=== PATIENT | female | born 1990 ===

== ENCOUNTER 2020-12-25 16:05 | Outpatient (REF) | payer OTHER, SELFPAY ==
--- NOTE | ~2020-12-25 | US_ITS ---
EXAMINATION: US THYROID CLINICAL INFORMATION: Nontoxic single thyroid nodule. COMPARISON: Ultrasound soft tissue head/neck thyroid dated 10/20/2019. TECHNIQUE: Linear transducer grayscale and color Doppler examination with attention to the region of the thyroid. FINDINGS: SIZE: Measurements of the thyroid lobes and nodules are given in sagittal, anteroposterior and transverse dimensions respectively. Right Thyroid Lobe: 4.5 x 1.2 x 1.4 cm, volume 4.0 mL. Previously 5.3 x 1.6 x 1.2 cm, volume 5.3 mL. Parenchyma: The gland echotexture is homogeneous. Thyroid vascularity is normal. Left Thyroid Lobe: 4.7 x 2.1 x 2.2 cm, volume 11.4 mL. Previously 4.8 x 2.0 x 2.0 cm, volume 10.0 mL. Parenchyma: The gland echotexture is homogeneous. Thyroid vascularity is normal. Isthmus: 0.1 cm in maximum AP dimension. Previously 0.2 cm. Estimated total number of nodules greater than or equal to 1 cm: 1. Rn Anesthetist nodules are described as follows: 1. Location: Left mid. Size: 3.4 x 1.8 x 2.1 cm, volume 6.7 mL. Previously: 4.2 x 1.7 x 1.8 cm, volume 6.7 mL. Nodule characteristics: Composition: Mixed cystic and solid (1). Echogenicity: Hypoechoic (2). Shape: Not taller than wide (0). Margins: Smooth (0). Echogenic Foci: None (0). ACR TI-RADS total points: 3 Previous: n/a ACR TI-RADS category: 3 Previous: n/a Significant change in size (>/= 20% in 2 dimensions and minimal increase of 2 mm or 50% or greater increase in volume): No Change in features: No Change in ACR TI-RADS risk category: n/a NODES: No lymphadenopathy is seen in the tissue surrounding the thyroid gland. US/US thyroid IMPRESSION: Slightly enlarged left lobe. Stable left thyroid nodule. ACR TI-RADS RECOMMENDATION REFERENCE: Ultrasound-guided fine-needle aspiration, followup ultrasound, no further follow up. * TR1 (0 point) and TR 2 (2 points): No FNA or follow up * TR3 (3 points): FNA if more than or equal to 2.5 cm in maximum dimension, followup ultrasound in 1, 3 and 5 years if 1.5 to 2.4 cm in maximum dimension. * TR4 (4-6 points): FNA if more than or equal to 1.5 cm in maximum dimension, followup ultrasound in 1, 2, 3 and 5 years if 1 to 1.4 cm in maximum dimension. * TR5 (more than or equal to 7 points): FNA if more than or equal to 1 cm in maximum dimension, followup ultrasound every year for 5 years if 0.5 to 0.9 cm in maximum dimension. * TR3, TR4 or TR5 nodules that are below the size threshold for follow up receive no follow up.
== END 2020-12-25 16:06 | disposition home or self-care (01) ==
LOC: HO.US 16:05
PROVIDERS: Visit Provider Internal Medicine
DX: E04.1 Nontoxic single thyroid nodule (principal)
CPT/HCPCS: 76536

== ENCOUNTER 2021-06-13 12:38 | Outpatient (REF) | payer OTHER, SELFPAY ==
[2021-06-13 15:01] LABS: Free T4 (Free Thyroxine) 0.83 ng/dL (0.71-1.85)
[2021-06-14 04:22] LABS: Triiodothyronine T3 Total 149 ng/dL (76-181)
== END 2021-06-13 12:39 | disposition home or self-care (01) ==
LOC: HO.LAB 12:38
PROVIDERS: PCP Student in an Organized Health Care Education/Training Program; Visit Provider Internal Medicine
DX: E04.1 Nontoxic single thyroid nodule (principal); E55.9 Vitamin D deficiency, unspecified
CPT/HCPCS: 36415; 82306; 84439; 84443; 84480; 99202

== ENCOUNTER 2022-01-23 11:33 | Outpatient (REF) | payer OTHER, SELFPAY ==
--- NOTE | ~2022-01-23 | US_ITS ---
EXAMINATION: US THYROID CLINICAL INFORMATION: Nontoxic single thyroid nodule. COMPARISON: Ultrasound soft tissue head/neck thyroid dated 12/25/2020 and 10/20/2019. TECHNIQUE: Linear transducer grayscale and color Doppler examination with attention to the region of the thyroid. FINDINGS: SIZE: Measurements of the thyroid lobes and nodules are given in sagittal, anteroposterior and transverse dimensions respectively. Right Thyroid Lobe: 5.7 x 1.6 x 1.7 cm, volume 7.7 mL. Previously 4.5 x 1.2 x 1.4 cm, volume 4.0 mL. Parenchyma: The gland echotexture is homogeneous. Thyroid vascularity is normal. Left Thyroid Lobe: 5.4 x 1.9 x 2.3 cm, volume 11.8 mL. Previously 4.7 x 2.1 x 2.2 cm, volume 11.4 mL. Parenchyma: The gland echotexture is homogeneous. Thyroid vascularity is normal. Isthmus: 0.2 cm in maximum AP dimension. Previously 0.1 cm. Estimated total number of nodules greater than or equal to 1 cm: 1. Paraffiner nodules are described as follows: 1. Location: Left mid. Size: 2.7 x 1.8 x 2.1 cm, volume 5.44 mL. Previously: 3.4 x 1.8 x 2.1 cm, volume 6.7 mL. Nodule characteristics: Composition: Solid/almost completely solid (2). Cystic component appears decreased. Echogenicity: Cannot be determined (1). Shape: Not taller than wide (0). Margins: Lobulated (2). Echogenic Foci: Punctate echogenic foci (3). ACR TI-RADS total points: 8 Previous: 3 ACR TI-RADS category: 5 Previous: 3 Significant change in size (>/= 20% in 2 dimensions and minimal increase of 2 mm or 50% or greater increase in volume): No Change in features: Yes. Nodule appears decreased in size likely due to decrease in cystic component. Change in ACR TI-RADS risk category: Change in category due to solitary punctate calcification. NODES: No lymphadenopathy is seen in the tissue surrounding the thyroid gland. US/US thyroid IMPRESSION: Solitary left thyroid nodule. Interval decrease in size and cystic component of the left thyroid nodule. Small punctate calcification changing nodule grade and category. ACR TI-RADS RECOMMENDATION REFERENCE: Ultrasound-guided fine-needle aspiration, followup ultrasound, no further follow up. * TR1 (0 point) and TR 2 (2 points): No FNA or follow up * TR3 (3 points): FNA if more than or equal to 2.5 cm in maximum dimension, followup ultrasound in 1, 3 and 5 years if 1.5 to 2.4 cm in maximum dimension. * TR4 (4-6 points): FNA if more than or equal to 1.5 cm in maximum dimension, followup ultrasound in 1, 2, 3 and 5 years if 1 to 1.4 cm in maximum dimension. * TR5 (more than or equal to 7 points): FNA if more than or equal to 1 cm in maximum dimension, followup ultrasound every year for 5 years if 0.5 to 0.9 cm in maximum dimension. * TR3, TR4 or TR5 nodules that are below the size threshold for follow up receive no follow up.
== END 2022-01-23 11:34 | disposition home or self-care (01) ==
LOC: HO.US 11:33
PROVIDERS: Visit Provider Internal Medicine
DX: E04.1 Nontoxic single thyroid nodule (principal)
CPT/HCPCS: 76536

== ENCOUNTER 2022-02-03 12:24 | Outpatient (REF) | payer OTHER, SELFPAY ==
[2022-02-03 14:11] LABS: Free T4 (Free Thyroxine) 0.95 ng/dL (0.71-1.85); Vitamin D 25-OH Total 38.9 ng/mL (>30)
== END 2022-02-03 12:25 | disposition home or self-care (01) ==
LOC: HO.LAB 12:24
PROVIDERS: PCP Student in an Organized Health Care Education/Training Program; Visit Provider Internal Medicine
DX: E04.1 Nontoxic single thyroid nodule (principal); E55.9 Vitamin D deficiency, unspecified
CPT/HCPCS: 36415; 82306; 84439; 84443

== ENCOUNTER → 2022-03-17 12:38 | Outpatient (REF) | payer OTHER, SELFPAY ==
--- NOTE | 2022-03-17 12:45 | ECG_ITS ---
Hook-up date: 2022-03-17 11:58:00 Duration: 26:11:00 Test Indications: PALPITATIONS Medications: [id number] QRS complexes * Ventricular ectopics which represent % of total QRS comp. 2 Supraventricular ectopics which represent <1 % of total QRS comp. * Paced QRS complexs which represent % of total QRS comp. VENTRICULAR ECTOPY * Isolated * Bigeminal Cycles * Couplets * Runs * Beats in Runs * Beats LONGEST at * BPM at :: -- * Beats FASTEST at * BPM at :: -- SUPRAVENTRICULAR ECTOPY 2 Isolated 0 Couplets 0 Runs 0 Beats in Runs * Beats LONGEST at * BPM at :: -- * Beats FASTEST at * BPM at :: -- HEART RATES 59 MIN at 03:44:23 2022-03-18 87 AVG 127 MAX at 07:32:55 2022-03-18 LONGEST RR 1.1760 secs at 00:24:51 2022-03-18 S-T LEVELS Channel 1 - 128 mm at 11:58:00 2022-03-17 - 128 mm at 11:58:00 2022-03-17 Channel 2 - 128 mm at 11:58:00 2022-03-17 - 128 mm at 11:58:00 2022-03-17 Channel 3 - 128 mm at 03:11:71 -- - 128 mm at 03:11:71 Basic rhythm Normal sinus rhythm No long pause or profound bradycardia Frequent Sinus tachycardia , 26% of total time HR > 100 bpm No dangerous dysrhythm periods Patient did not report any symptoms in the diary Referred By: Theresa Pike Overread By: PARKER ESPINOZA MD
== END ==
LOC: HO.CARD 12:38
PROVIDERS: PCP Student in an Organized Health Care Education/Training Program; Visit Provider Student in an Organized Health Care Education/Training Program
DX: R00.2 Palpitations (principal)
CPT/HCPCS: 93226

== ENCOUNTER 2022-08-27 08:50 | Outpatient (REF) | payer OTHER, SELFPAY ==
--- NOTE | ~2022-08-27 | MM_ITS ---
EXAMINATION: MM DIAGNOSTIC DIGITAL BREAST TOMOSYNTHESIS, BILATERAL US DIAGNOSTIC ULTRASOUND BREAST, LEFT CLINICAL INFORMATION: 31-year-old with lower outer quadrant pain left breast for approximately 6 months, persistent, dull, noncyclical. No palpable mass or discharge. Family history breast cancer grandmother. TC score 13%. COMPARISON: None (current study represents initial baseline exam). TECHNIQUE: Digital breast tomosynthesis is performed in both the craniocaudal and mediolateral oblique views along with computer-aided detection (CAD). Synthesized 2D images are generated from the tomosynthesis. Ultrasound left breast is targeted to the areas of clinical concern using grayscale imaging and color Doppler without and with harmonics. Patient is able to point to the area time of imaging. FINDINGS: There are scattered areas of fibroglandular density (ACR BI-RADS breast composition Category b). Breast tissue composition borders on predominantly fatty. There is no significant mass or architectural abnormality or abnormal calcifications. The axilla are unremarkable. No skin thickening. No coarsening of the Nick's ligaments. Ultrasound left breast demonstrates no cystic or solid mass, architectural abnormality, or focal duct ectasia. No skin thickening or edema tracking in soft tissue planes. Results are discussed with the patient at time of visit. MM/MM tomosynthesis diagnostic BI IMPRESSION: -No mammographic evidence of malignancy or inflammatory changes. -Unremarkable left breast ultrasound. ASSESSMENT: BI-RADS 1: Negative RECOMMENDATION: 1. Patient's left mastodynia should be managed based on the clinical impression. 2. Otherwise, routine annual screening mammography, beginning age 40, or earlier as clinical risk factors warrant. This patient's information was entered into a reminder system with a target due date for their next mammogram.
== END 2022-08-27 08:51 | disposition home or self-care (01) ==
LOC: HO.MAMMO 08:50
PROVIDERS: PCP Student in an Organized Health Care Education/Training Program; Visit Provider Advanced Practice Midwife
DX: N64.4 Mastodynia (principal)
CPT/HCPCS: 76642; 77062; 77066

== ENCOUNTER 2022-09-05 11:14 | Outpatient (REF) | payer OTHER, SELFPAY ==
--- NOTE | ~2022-09-05 | US_ITS ---
EXAMINATION: US PELVIS COMPLETE CLINICAL INFORMATION: Pain COMPARISON: None TECHNIQUE: Transabdominal and transvaginal imaging was performed. FINDINGS: The uterus is of normal size and echogenicity measuring 6.8 x 2.7 x 5.3 cm. A regular homogeneous endometrium is identified measuring 0.2 cm. Both ovaries are of normal size and echogenicity. The right measures 2.8 x 2.1 x 2.2 cm for a volume of 6.8 mL. The left measures 3.7 x 2.2 x 2.6 cm for a volume of 11.1 mL, with a physiologic dominant follicle, no follow-up imaging recommended. There is no pelvic free fluid. US/US pelvic and transvaginal IMPRESSION: Unremarkable pelvic ultrasound.
== END 2022-09-05 11:15 | disposition home or self-care (01) ==
LOC: HO.US 11:14
PROVIDERS: PCP Student in an Organized Health Care Education/Training Program; Visit Provider Advanced Practice Midwife
DX: R10.2 Pelvic and perineal pain (principal)
CPT/HCPCS: 76830; 76856

== ENCOUNTER 2022-11-19 13:44 | Outpatient (REF) | payer OTHER, SELFPAY ==
--- NOTE | ~2022-11-19 | US_ITS ---
EXAMINATION: US THYROID CLINICAL INFORMATION: Nontoxic single thyroid nodule. COMPARISON: Ultrasound thyroid 01/23/2022 and 12/25/2020. US-guided thyroid biopsy 11/16/2019. TECHNIQUE: Linear transducer grayscale and color Doppler examination with attention to the region of the thyroid. FINDINGS: SIZE: Measurements of the thyroid lobes and nodules are given in sagittal, anteroposterior and transverse dimensions respectively. Right Thyroid Lobe: 4.5 x 2.0 x 1.2 cm, volume 5.8 mL. Previously 5.7 x 1.6 x 1.7 cm, volume 7.7 mL. Parenchyma: The gland echotexture is homogeneous. Thyroid vascularity is normal. Left Thyroid Lobe: 4.4 x 1.9 x 2.4 cm, volume 10.6 mL. Previously 5.4 x 1.9 x 2.3 cm, volume 11.8 mL. Parenchyma: The gland echotexture is heterogeneous. Thyroid vascularity is increased. Isthmus: 0.4 cm in maximum AP dimension. Previously 0.2 cm. Estimated total number of nodules greater than or equal to 1 cm: 1. Award Clerk nodules are described as follows: 1. Location: Left mid. Size: 3.0 x 1.8 x 2.0 cm, volume 5.7 mL. Previously: 2.7 x 1.8 x 2.1 cm, volume 5.44 mL. Nodule characteristics: Composition: Solid/almost completely solid (2). Echogenicity: Cannot be determined (1). Shape: Not taller than wide (0). Margins: Lobulated (2). Echogenic Foci: None (0). ACR TI-RADS total points: 5 Previous: 8 ACR TI-RADS category: 4 Previous: 5 Significant change in size (>/= 20% in 2 dimensions and minimal increase of 2 mm or 50% or greater increase in volume): No Change in features: Yes Change in ACR TI-RADS risk category: Yes NODES: No lymphadenopathy is seen in the tissue surrounding the thyroid gland. US/US thyroid IMPRESSION: FNA is recommended of left mid nodule if not previously performed. ACR TI-RADS RECOMMENDATION REFERENCE: Ultrasound-guided fine-needle aspiration, followup ultrasound, no further follow up. * TR1 (0 point) and TR2 (2 points): No FNA or follow up. * TR3 (3 points): FNA if more than or equal to 2.5 cm in maximum dimension, followup ultrasound in 1, 3 and 5 years if 1.5 to 2.4 cm in maximum dimension. * TR4 (4-6 points): FNA if more than or equal to 1.5 cm in maximum dimension, followup ultrasound in 1, 2, 3 and 5 years if 1 to 1.4 cm in maximum dimension. * TR5 (more than or equal to 7 points): FNA if more than or equal to 1 cm in maximum dimension, followup ultrasound every year for 5 years if 0.5 to 0.9 cm in maximum dimension. * TR3, TR4 or TR5 nodules that are below the size threshold for followup receive no follow up.
== END 2022-11-19 13:45 | disposition home or self-care (01) ==
LOC: HO.US 13:44
PROVIDERS: PCP Student in an Organized Health Care Education/Training Program; Visit Provider Internal Medicine
DX: E04.1 Nontoxic single thyroid nodule (principal)
CPT/HCPCS: 76536

== ENCOUNTER 2023-01-27 08:35 | Outpatient (AMB) | payer OTHER, SELFPAY ==
--- NOTE | 2023-01-27 08:40 | A.OFFVIS_ITS ---
Intake Vital Signs 01/27/23 08:41 Height 5 ft 9 in Weight 243 lb 9.773 oz BMI 36.0 BP 106/72 Blood Pressure Location Rt brachial Position Sitting Pulse 92 Pulse Source Pulse Oximeter Temp 98.4 F Pulse Oximetry (%) 98 Intake Visit Reasons: Multiple Joint Pain W/low possibilities YOSHI /^ ESR Intake Note: New pt presents today for consult. 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 Patient stated that for years she has had diffuse pain, sensitivity to touch. She has difficulty falling and staying asleep. This pain has become worse over the last 2 years. She has pain in her neck, shoulders, arms, feet. States that she has a sister with thyroid disease. She she had 1 , 1 live and no miscarriages. 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 Reproductive History Menstrual Total pregnancies: 1 Number of Living Children: 1 Review of Systems Const Reports fatigue, Reports fever(s), Reports headache(s), Reports weakness and Reports weight gain Eyes Reports blurry vision, Reports dry eyes, Reports itchy eyes and Reports eye pain ENT Reports dysphagia, Reports dizziness, Reports dry mouth, Reports headache(s), Reports hoarseness and Reports tinnitus GI Reports constipation, Reports dysphagia, Reports heartburn and Reports nausea Musc Reports myalgias, Reports arthralgias, Reports muscle weakness and Reports stiffness Skin/Breast Reports alopecia, Reports pruritus, Reports rash and Reports skin pain Neuro Reports dizziness, Reports headache(s) and Reports weakness Psych Reports abnormal sleep pattern and Reports anxiety Endo Reports fatigue Aller/Immun Reports itchy eyes Physical Exam Vital Signs: Last Vital Signs Temp 98.4 F 01/27/23 08:41 Pulse 92 01/27/23 08:41 BP 106/72 01/27/23 08:41 Pulse Ox 98 01/27/23 08:41 BMI result Body Mass Index 36.0 Const General: cooperative, healthy appearing and comfortable Nutritional Appearance: obese Orientation/consciousness: patient oriented x3 Limitations: no limitations HEENT Head: Yes normocephalic and Yes atraumatic Mouth: moist mucous membranes Resp Effort & Inspection: normal respiratory effort and able to speak in complete sentences Auscultation: clear to auscultation bilaterally Cardio Rate: regular rate and tachycardic GI Inspection: No distended Palpation (GI): Soft to palpation and nontender Skin General skin exam: no rashes or lesions noted Neuro General: patient oriented x3 Extrem Other: Diffuse fibromyalgia tender points Bilateral positive MCP squeeze test. No joint swelling noted Normal nailfold capillaroscopy Results Reviewed Results Reviewed: Labs 08/14? YOSHI 1-40 fine speckled CCP/RF negative? CRP normal CMP unremarkable Assessment & Plan Assessment & Plan (1) YOSHI positive: Code(s): R76.8 - Other specified abnormal immunological findings in serum Plan: This is a 32-year-old female who presents for evaluation of a positive YOSHI speckled. Patient has normal CRP. I do not see any signs suggestive of an autoimmune rheumatic disease upon my evaluation. Clinical picture consistent with fibromyalgia (2) Fibromyalgia, primary: Code(s): M79.7 - Fibromyalgia Plan: Discussed management of fibromyalgia with patient. Is a noninflammatory, non- autoimmune central afferent processing disorder leading to a diffuse pain syndrome. I suggested that patient try to address her underlying psychiatric issues, anxiety/depression. I suggested evaluation by a therapist and/or a psychiatrist . Try to follow sleep hygiene practices. I I suggested referral for a sleep study by her PCP, her sister has ELIZABETH. Patient would benefit from increased physical activity, either through formal physical therapy or by joining a gym. Advised patient that she should start activity slowly and increase as tolerated. Consider low-impact exercises such as walking, swimming, aqua therapy stretching, yoga. Plan I spent 46 minutes reviewing patient's chart, evaluating patient, counseling patient and documenting in the chart Coding Level of Care Code New Pt Level 4 (88520) Diagnoses YOSHI positive R76.8 Fibromyalgia, primary M79.7
[2023-01-27 08:41] VITALS: BP 106/72; PULSE 92; TEMP 36.9; O2SAT 98; BMI 36.0
== END 2023-01-27 09:13 | disposition home or self-care (01) ==
PROVIDERS: PCP Student in an Organized Health Care Education/Training Program; Visit Provider Student in an Organized Health Care Education/Training Program
DX: R76.8 Other specified abnormal immunological findings in serum (principal); M79.7 Fibromyalgia
CPT/HCPCS: 99204

== ENCOUNTER → 2023-01-27 08:35 | Outpatient (BNVA) | payer OTHER, SELFPAY | PROVIDERS: PCP Student in an Organized Health Care Education/Training Program; Visit Provider Student in an Organized Health Care Education/Training Program | DX: R76.8 Other specified abnormal immunological findings in serum (principal); M79.7 Fibromyalgia | CPT/HCPCS: 99202 ==

== ENCOUNTER 2023-04-30 10:42 | Outpatient (REF) | payer OTHER, SELFPAY ==
[2023-04-30 12:13] LABS: Thyroid Stimulating Hormone 1.19 uIU/mL (0.32-4.0); Vitamin D 25-OH Total 35.2 ng/mL (>30)
== END 2023-04-30 10:43 | disposition home or self-care (01) ==
LOC: HO.LAB 10:42
PROVIDERS: PCP Student in an Organized Health Care Education/Training Program; Visit Provider Internal Medicine Endocrinology, Diabetes & Metabolism
DX: E04.1 Nontoxic single thyroid nodule (principal); E55.9 Vitamin D deficiency, unspecified
CPT/HCPCS: 36415; 82306; 84439; 84443

== ENCOUNTER 2023-05-04 09:46 | Outpatient (AMB) | payer OTHER, SELFPAY ==
[2023-05-04 09:47] VITALS: BP 108/68; PULSE 92; BMI 36.1
--- NOTE | 2023-05-04 09:47 | MHC.OFFVIS ---
Intake Vital Signs 05/04/23 09:47 Height 5 ft 9 in Weight 244 lb 11.41 oz BMI 36.1 BP 108/68 Blood Pressure Location Lt brachial Position Sitting Pulse 92 Pulse Source Pulse Oximeter Intake Visit Reasons: F/U NTMNG/CONFIRMED Intake Note: Patient present for NTMNG follow up visit. Previously followed by Dr. Shelton. 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 The patient last saw Dr. Shelton on 02/10/2022 Was initially diagnosed with multinodular thyroid in 2019 with thyroid US revealing a 4 cm nodule within the L lobe of her thyroid. She underwent FNA biopsy by IR 06/17/2019 with benign cytology. She had a repeat US completed 01/23/2022 which revealed no significant changes. Currently denies any dysphagia or hoarseness of voice. She reports occasional headaches, lightheadedness and abdominal pain. She has an appointment this week to discuss this with her PCP. Denies any history of head or neck irradiation. Does have a family history of thyroid cancer in her maternal Grandmother. Thyroid US: 01/23/2022 Right Thyroid Lobe: 5.7 x 1.6 x 1.7 cm, volume 7.7 mL. Previously 4.5 x 1.2 x 1.4 cm, volume 4.0 mL. Parenchyma: The gland echotexture is homogeneous. Thyroid vascularity is normal. Left Thyroid Lobe: 5.4 x 1.9 x 2.3 cm, volume 11.8 mL. Previously 4.7 x 2.1 x 2.2 cm, volume 11.4 mL. Parenchyma: The gland echotexture is homogeneous. Thyroid vascularity is normal. Isthmus: 0.2 cm in maximum AP dimension. Previously 0.1 cm. Estimated total number of nodules greater than or equal to 1 cm: 1. Stacking Machine Operator nodules are described as follows: 1.? Location: Left mid. ?? ? Size: 2.7 x 1.8 x 2.1 cm, volume 5.44 mL. ?? ? Previously: 3.4 x 1.8 x 2.1 cm, volume 6.7 mL. ?? ? Nodule characteristics: ?? ? Composition: Solid/almost completely solid (2). Cystic component appears decreased. ?? ? Echogenicity: Cannot be determined (1). ?? ? Shape: Not taller than wide (0). ?? ? Margins: Lobulated (2). ?? ? Echogenic Foci: Punctate echogenic foci (3).? ACR TI-RADS total points: 8 Previous: 3 ?? ? ACR TI-RADS category: 5 Previous: 3 ? Significant change in size (>/= 20% in 2 dimensions and minimal increase of 2 mm or 50% or greater increase in volume): No ?? ? Change in features: Yes. Nodule appears decreased in size likely due to decrease in cystic component. ?? ? Change in ACR TI-RADS risk category: Change in category due to solitary punctate calcification. NODES: No lymphadenopathy is seen in the tissue surrounding the thyroid gland. Labs: Laboratory Tests 02/03/22 12:46 25-OH Vitamin D To nitin 38.9 TSH 1.20 Free T4 0.95 C/O pain and hoarseness but only intermittedly, Does not want surgery [facility] Medical History Thyroid nodule Vitamin D deficiency Surgical History No history of previous surgery Family History Maternal Grandmother Family history of thyroid problem Paternal Grandfather Heart attack Mother Hypertension Arthritis Father Hypertension Arthritis Family/Other Lupus Social History Household Members: Spouse and Children Alcohol intake: never Patient Tobacco Use Status: Never used Tobacco Current occupational status: employed 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 A 3 cm nodule is palpated left midpole. There is no cervical adenopathy present Assessment & Plan Assessment & Plan (1) Thyroid nodule: Code(s): E04.1 - Nontoxic single thyroid nodule Plan: This is a 32-year-old female with a history of left thyroid nodule status post FNA with benign cytology in 2020. She appears to be clinically biochemically euthyroid. Recent thyroid ultrasound showed no change in the size of the nodule Plan is discussed options with the patient including following nodule with serial ultrasounds vs left lobectomy. She is opting at this point for observation. She returned to the care of her primary care provider who could order an ultrasound for follow-up in about 2-3 years time. Should there be any change in the size of or characteristics of the nodule, the patient returned back to endocrine Coding Level of Care Code Est Pt Level 3 (22123) Diagnoses Thyroid nodule E04.1
== END 2023-05-04 10:02 | disposition home or self-care (01) ==
PROVIDERS: PCP Student in an Organized Health Care Education/Training Program; Visit Provider Internal Medicine Endocrinology, Diabetes & Metabolism
DX: E04.1 Nontoxic single thyroid nodule (principal)
CPT/HCPCS: 99213

== ENCOUNTER → 2023-05-04 09:46 | Outpatient (BNVA) | payer OTHER, SELFPAY | PROVIDERS: PCP Student in an Organized Health Care Education/Training Program; Visit Provider Internal Medicine Endocrinology, Diabetes & Metabolism | DX: E04.1 Nontoxic single thyroid nodule (principal) | CPT/HCPCS: 99212 ==

== ENCOUNTER 2023-07-30 11:08 | Outpatient (REF) | payer OTHER, SELFPAY ==
--- NOTE | ~2023-07-30 | XR_ITS ---
EXAMINATION: XR CHEST CLINICAL INFORMATION: Chronic cough, second hand smoke, mild intermittent asthma. COMPARISON: None available. TECHNIQUE: 2 views of the chest were obtained. FINDINGS: There is no gross pneumothorax. Heart size is normal. No pleural effusion. Mild degenerative changes in the thoracic spine. No focal consolidation to suggest pneumonia. XR/XR chest 2V IMPRESSION: No evidence of pneumonia.
== END 2023-07-30 11:09 | disposition home or self-care (01) ==
LOC: HO.XRAY 11:08
PROVIDERS: Absent Provider Student in an Organized Health Care Education/Training Program; PCP Student in an Organized Health Care Education/Training Program; Visit Provider Pediatrics
DX: J45.20 Mild intermittent asthma, uncomplicated (principal)
CPT/HCPCS: 71046

== ENCOUNTER 2023-09-29 10:24 | Outpatient (AMB) | payer OTHER, SELFPAY ==
--- NOTE | 2023-09-29 10:41 | A.OFFVIS_ITS ---
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 Patient states she gets cramps when walking. Accompanied by: Self / Same As Patient Allergies No Known Allergies Allergy (Verified 09/29/23 10:43) [facility] PACKAGING ENGINEER/C faxed referral for VV: Details: Pleasant 33-year-old female patient presents for painful varicose veins. Complaints include pain over varicosities, swelling of lower extremities, cramping, fatigue, and heaviness of the lower extremities. 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 It is noted more so in right leg. In particular she complains about the right posterior aspect of the knee Patient denies any previous venous surgery or injections. Patient denies any history of DVT/ PE. Patient denies any history of phlebitis. Trial of compression includes - [id number] They now present for vascular evaluation regarding their varicose veins. 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 Review of Systems Const Reports as per HPI ENT Reports no additional complaints Card Denies chest pain, Denies chest pain at rest and Denies chest pain with activity Resp Denies chest congestion and Denies cough GI Reports no additional complaints Musc Details: pain over varicosities, aching of lower extremities, swelling, cramping, heaviness and tiredness, itching Denies abnormal gait Skin/Breast Reports pruritus and Denies wounds Neuro Reports no additional complaints and Denies abnormal gait Psych Denies no additional complaints Physical Exam Const General: cooperative, healthy appearing and comfortable Orientation/consciousness: oriented to person, oriented to place and oriented to time Neck Carotids: no bruits Chest Chest palpation & inspection: normal inspection of the chest and normal palpation of entire chest wall Resp Effort & Inspection: normal respiratory effort and able to speak in complete sentences Cardio Rate: regular rate Heart sounds: S1 normal heart sound present and S2 normal heart sound present Peripheral pulses: Peripheral pulses 2+ throughout GI Inspection: Yes normal to inspection Skin Other: +2 edema, large rope-like varicosities greater than 4 mm CEAP Classification C4 - skin color changes Ep - Etiology Primary As - superficial veins P - reflux General skin exam: dry skin Neuro General: oriented to person, oriented to place and oriented to time Extrem Right lower extremity: full ROM, normal capillary refill and edema Left lower extremity: full ROM, normal capillary refill and edema Psych Mental Status: mental status grossly normal Assessment & Plan Assessment & Plan (1) Varicose veins of right lower extremity with inflammation: Code(s): I83.11 - Varicose veins of right lower extremity with inflammation Category: Medical Plan: In short, the patient has evidence of venous insufficiency. I have discussed the pathophysiology with the patient. In addition I have provided informational material regarding venous disease to the patient. We have discussed conservative measures including compression, elevation, and exercise. I have also provided a handout regarding appropriate use of compression stockings and where to purchase good compression stockings as well. I have taken the liberty of ordering venous insufficiency testing with the patient. They will follow up with me after testing. The patient had an opportunity to ask questions regarding the treatment plan. All questions were answered. Imaging studies, laboratory studies and physical exam results were discussed and reviewed in detail. No major barriers to understanding were identified. The patient expressed understanding and agreement with the above treatment plan. The patient is aware they should contact our office by phone for worsening of the current condition or the appearance of new symptoms. Thank you for allowing me to participate in the vascular care of this patient. If you have any questions or concerns regarding the treatment for the above condition please do not hesitate to contact me. The office telephone contact is [phone]. This note is constructed using voice recognition software. While every effort has been made to ensure accuracy, telecommunications switch technician errors may have been included. Thank you for allowing me to participate in the care of your patient. Yours sincerely, Bogdan Feldman MD, FACS, R.P.V.I. Orders: Orders US venous duplex LE BI 1 Week I83.11 - Varicose veins of right lower extremity with inflammation Coding Level of Care Code New Pt Level 4 (01432) Diagnoses Varicose veins of right lower extremity with inflammation I83.11
== END 2023-09-29 11:16 | disposition home or self-care (01) ==
PROVIDERS: PCP Student in an Organized Health Care Education/Training Program; Visit Provider Surgery Vascular Surgery
DX: I83.11 Varicose veins of right lower extremity with inflammation (principal)
CPT/HCPCS: 99203

== ENCOUNTER → 2023-09-29 10:24 | Outpatient (BNVA) | payer OTHER, SELFPAY | PROVIDERS: PCP Student in an Organized Health Care Education/Training Program; Visit Provider Surgery Vascular Surgery | DX: I83.11 Varicose veins of right lower extremity with inflammation (principal) | CPT/HCPCS: 99202 ==

== ENCOUNTER 2023-10-16 12:52 | Outpatient (REF) | payer OTHER, SELFPAY ==
--- NOTE | ~2023-10-16 | US_ITS ---
EXAMINATION: US LOWER EXTREMITY VENOUS (REFLUX EXAM), BILATERAL CLINICAL INDICATION: Varicose veins COMPARISON: None. TECHNIQUE: Color flow triplex imaging and compression Doppler was performed to evaluate both the deep and the superficial systems bilaterally. To evaluate the superficial system, the examination was performed in the upright position. Color-flow Doppler ultrasound and compression ultrasound were utilized. In addition, maneuvers were utilized to demonstrate reflux. FINDINGS: 1. DEEP VENOUS ULTRASOUND OF THE RIGHT LOWER EXTREMITY: Common Femoral Vein: Compressible, normal respiratory variation and augmented flow. Femoral Vein: Compressible, normal color flow and augmentation. Popliteal Vein: Compressible, normal augmentation. Deep Reflux: There is no evidence of reflux in the deep system in either the common femoral vein, superficial femoral or the popliteal vein. There is no evidence of a Fry's cyst. 2. SUPERFICIAL ULTRASOUND WITH DOPPLER OF RIGHT LOWER EXTREMITY: GREAT SAPHENOUS VEIN: Saphenofemoral Junction: 0.6 cm; Reflux: 0 ms Proximal Thigh: 0.4 cm; Reflux: 0 ms Mid Thigh: 0.4 cm; Reflux: 0 ms Above Knee: 0.4 cm; Reflux: 0 ms At Knee: 0.3 cm; Reflux: 0 ms Below Knee: 0.3 cm; Reflux: 0 ms Mid Calf: 0.3 cm; Reflux: 0 ms Ankle: 0.2 cm; Reflux: 0 ms DUPLICATED MEDIAL GREAT SAPHENOUS VEIN: Diameter: None imaged Reflux: NA DUPLICATED LATERAL GREAT SAPHENOUS VEIN: Saphenopopliteal Junction: 0.4 cm; Reflux: 0 ms Distal: 0.3 cm; Reflux: 0 ms SMALL SAPHENOUS VEIN: Saphenopopliteal Junction: 0.4 cm; Reflux: 0 ms Proximal: 0.2 cm; Reflux: 0 ms Distal: 0.4 cm; Reflux: 0 ms VEIN OF GIACOMINI: Size: 0.3cm Reflux: N/A PERFORATORS: Location: Multiple-calf mid Size: 0.2-0.4cm Reflux: NA VARICOSITIES: Location: SSV distal Size: 0.3cm Reflux: NA 3. DEEP VENOUS ULTRASOUND OF THE LEFT LOWER EXTREMITY: Common Femoral Vein: Compressible, normal respiratory variation and augmented flow. Femoral Vein: Compressible, normal color flow and augmentation. Popliteal Vein: Compressible, normal augmentation. Deep Reflux: There is no evidence of reflux in the deep system in either the common femoral vein, superficial femoral or the popliteal vein. There is no evidence of a Fry's cyst. 4. SUPERFICIAL ULTRASOUND WITH DOPPLER OF LEFT LOWER EXTREMITY: GREAT SAPHENOUS VEIN: Saphenofemoral Junction: 0.5 cm; Reflux: 0 ms Proximal Thigh: 0.5 cm; Reflux: 0 ms Mid Thigh: 0.4 cm; Reflux: 0 ms Above Knee: 0.5 cm; Reflux: 1892 ms At Knee: 0.3 cm; Reflux: 2240 ms Below Knee: 0.3 cm; Reflux: 0 ms Mid Calf: 0.1 cm; Reflux: 0 ms Ankle: 0.3 cm; Reflux: 0 ms DUPLICATED MEDIAL GREAT SAPHENOUS VEIN: Diameter: 0.5cm Reflux: NA DUPLICATED LATERAL GREAT SAPHENOUS VEIN: Diameter: None imaged Reflux: NA SMALL SAPHENOUS VEIN: Saphenopopliteal Junction: 0.4 cm; Reflux: 0 ms Proximal: 0.2 cm; Reflux: 0 ms Distal: 0.2 cm; Reflux: 0 ms VEIN OF GIACOMINI: Size: NA Reflux: NA PERFORATORS: Location: None imaged Size: NA Reflux: NA VARICOSITIES: Location: Prox calf Size: 0.3cm Reflux: NA US/US venous duplex LE BI IMPRESSION: 1. No deep venous thrombosis. 2. Reflux in the mid left lower extremity. 3. Bilateral refluxing varicosities.
== END 2023-10-16 12:53 | disposition home or self-care (01) ==
LOC: HO.US 12:52
PROVIDERS: PCP Student in an Organized Health Care Education/Training Program; Visit Provider Surgery Vascular Surgery
DX: I83.11 Varicose veins of right lower extremity with inflammation (principal)
CPT/HCPCS: 93970

== ENCOUNTER 2023-10-20 13:54 | Outpatient (REF) | payer OTHER, SELFPAY ==
[2023-10-20 14:44] LABS: MANUAL DIFF FLAG NO
[2023-10-20 15:04] LABS: Basophils Absolute Auto 0.1 X10*3/uL (0.0-0.2); Basophils Percent Auto 0.5 % (0-2); Eosinophils Absolute Auto 0.2 X10*3/uL (0.0-0.4); Eosinophils Percent Auto 2.1 % (0-4); Hematocrit 38.9 % (37.0-47.0); Hemoglobin 13.2 g/dl (12.0-16.0); Imm Gran Abs Auto 0.04 X10*3/uL (0.00-0.03); Imm Gran Pct Auto 0.4 % (0.0-0.4); Lymphocytes Absolute Auto 1.8 X10*3/uL (1.2-4.9); Lymphocytes Percent Auto 17.6 % (20-40); Mean Corpuscular HGB Conc 33.9 g/dl (31.0-35.0); Mean Corpuscular Hemoglobin 30.6 pg (27.0-33.0); Mean Corpuscular Volume 90.3 fL (80.0-98.0); Mean Platelet Volume 9.8 fL (9.4-12.3); Monocytes Absolute Auto 0.8 X10*3/uL (0.1-1.2); Monocytes Percent Auto 8.3 % (2-11); Neutrophils Absolute Auto 7.2 x10*3/uL (2.0-8.3); Neutrophils Percent Auto 71.1 % (45-73); Platelet Count 338 X10*3/uL (160-400); Red Blood Count 4.31 X10*6/uL (4.20-5.50); Red Cell Distribution Width 12.5 % (11.0-16.0); White Blood Count 10.1 X10*3/uL (4.8-10.8)
[2023-10-20 15:55] LABS: Alanine Aminotransferase 20 U/L (0-31); Albumin Level 4.3 g/dL (3.5-5.0); Alkaline Phosphatase 83 U/L (39-117); Anion Gap 13 (12-20); Aspartate Amino Transferase 15 U/L (5-31); Bilirubin Total 0.5 mg/dL (0.0-1.0); Blood Urea Nitrogen 10 mg/dL (9-16); Calcium 9.4 mg/dL (8.4-10.2); Carbon Dioxide 23 mmol/L (22-29); Chloride 105 mmol/L (96-108); Estimated Glomerular Filt Rate > 60; Glucose Random 83 mg/dL (60-115); Potassium 3.9 mmol/L (3.3-5.1); Sodium 137 mmol/L (135-145)
== END 2023-10-20 13:55 | disposition home or self-care (01) ==
LOC: HO.CHCLDS 13:54
PROVIDERS: Visit Provider Internal Medicine
DX: R10.32 Left lower quadrant pain (principal); K59.09 Other constipation
CPT/HCPCS: 36415; 80053; 85025

== ENCOUNTER 2024-01-11 16:20 | Outpatient (REF) | payer OTHER, SELFPAY ==
[2024-01-13 17:27] LABS: HPV mRNA E6/E7 Not Detected (Not Detected)
== END 2024-01-11 16:21 | disposition home or self-care (01) ==
LOC: HO.HHCLNP 16:20
PROVIDERS: Visit Provider Advanced Practice Midwife
DX: Z12.4 Encounter for screening for malignant neoplasm of cervix (principal)
CPT/HCPCS: 36415; 87624; 88175

== ENCOUNTER 2024-01-12 13:49 | Outpatient (AMB) | payer OTHER, SELFPAY ==
[2024-01-12 13:51] VITALS: BMI 36.0
--- NOTE | 2024-01-12 13:51 | A.OFFVIS_ITS ---
Vital Signs 01/12/24 13:51 Height 5 ft 9 in Weight 244 lb BMI 36.0 Intake Visit Reasons: f/u s/p US 10/16/2023 Intake Note: follow up 10/16/23, pt states bilateral LE pain, states they are equal. Pt statse she gets burning sensation. Pt states it helps relieve the pain when she elevates or wears compression stockings. Accompanied by: Self / Same As Patient Allergies No Known Allergies Allergy (Verified 01/12/24 13:54) HPI HPI f/u s/p 10/16/2023: Details: Very pleasant 33-year-old female presents for follow-up evaluation regarding pain and discomfort regarding her lower extremities. She notes that there is occasional swelling and pain more so behind the knees. She has undergone venous insufficiency testing and now presents for follow-up. She has had no other interval issues. 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 Review of Systems Const All systems reviewed & are unremarkable except as noted in HPI and below Reports no additional complaints ENT Reports Normal hearing present Card Denies chest pain, Denies chest pain at rest, Denies chest pain with activity and Denies pedal edema Resp Denies cough GI Denies abdominal pain Musc Denies abnormal gait, Denies muscle cramps and Denies radiating pain into limb Skin/Breast Denies skin ulcer and Denies wounds Neuro Reports Normal hearing present and Denies abnormal gait Psych Reports no additional complaints Physical Exam Vital Signs: BMI result Body Mass Index 36.0 Const General: cooperative, healthy appearing and comfortable Orientation/consciousness: oriented to person, oriented to place and oriented to time HEENT Head: Yes normal to inspection Neck Neck: Yes normal visual inspection Carotids: no bruits Chest Chest palpation & inspection: normal inspection of the chest Resp Effort & Inspection: normal respiratory effort and able to speak in complete sentences Auscultation: clear to auscultation bilaterally, no crackles, no rales, no rhonchi and no wheezes Cardio Rate: regular rate Rhythm: regular rhythm Heart sounds: S1 normal heart sound present and S2 normal heart sound present Bruits: no carotid bruits Peripheral pulses: Peripheral pulses 2+ throughout GI Inspection: Yes normal to inspection Skin Wounds: no wounds Hair: normal Neuro General: oriented to person, oriented to place and oriented to time Cranial nerves: Yes CN's II-XII intact bilaterally and Yes Normal hearing present Cognition (Neuro): normal cognition Motor exam (neuro): 5/5 motor strength present throughout Extrem Other: venous exam: No significant superficial varicosities or spider telangiectasias, minimal edema General: No clubbing, No cyanosis and No edema Psych Appearance: grossly normal Mental Status: mental status grossly normal Speech and movement: Normal speech and movement present Results Reviewed Results Reviewed: Brief summary of venous insufficiency testing is as follows: right great saphenous vein: negative right small saphenous vein: negative right accessory vein: none present left great saphenous vein: Focally positive at knee only left small saphenous vein: negative left accessory vein: none present Please note there is no evidence of any venous aneurysms or significant tortuosity Assessment & Plan Assessment & Plan (1) Varicose veins of right lower extremity with inflammation: Code(s): I83.11 - Varicose veins of right lower extremity with inflammation Category: Medical Plan: In short patient is negative for any significant venous insufficiency. I do believe that the pain and discomfort may be more related to her fibromyalgia as discussed by Rheumatology. At the current time would only recommend con servative measures including compression elevation and exercise. This was discussed in detail with the patient and she will follow up with us on an as- needed basis. Thank you for allowing us to assist in her care. If there are any questions or concerns please do not hesitate to contact us. Coding Level of Care Code Est Pt Level 4 (85089) Diagnoses Varicose veins of right lower extremity with inflammation I83.11
== END 2024-01-12 14:17 | disposition home or self-care (01) ==
PROVIDERS: PCP Student in an Organized Health Care Education/Training Program; Visit Provider Surgery Vascular Surgery
DX: I83.11 Varicose veins of right lower extremity with inflammation (principal)
CPT/HCPCS: 99214

== ENCOUNTER → 2024-01-12 13:49 | Outpatient (BNVA) | payer OTHER, SELFPAY | PROVIDERS: PCP Student in an Organized Health Care Education/Training Program; Visit Provider Surgery Vascular Surgery | DX: I83.11 Varicose veins of right lower extremity with inflammation (principal) | CPT/HCPCS: 99212 ==

== ENCOUNTER 2024-07-07 11:42 | Outpatient (REF) | payer OTHER, SELFPAY ==
[2024-07-07 14:33] LABS: Anion Gap 14 (12-20); Blood Urea Nitrogen 10 mg/dL (9-16); Calcium 9.5 mg/dL (8.4-10.2); Carbon Dioxide 21 mmol/L (22-29); Chloride 107 mmol/L (96-108); Cholesterol 206 mg/dL (<200); Estimated Glomerular Filt Rate > 60; Glucose Fasting 87 mg/dL (60-99); HDL Cholesterol 43 mg/dL (>40); LDL Cholesterol Calculated 133 mg/dL (<100); Potassium 4.5 mmol/L (3.3-5.1); Sodium 137 mmol/L (135-145); Triglycerides 152 mg/dL (<150)
[2024-07-07 14:51] LABS: TSH reflex Free T4 0.28 uIU/mL (0.32-4.0); Vitamin D 25-OH Total 42.2 ng/mL (>30)
[2024-07-07 15:38] LABS: Free T4 (Free Thyroxine) 0.99 ng/dL (0.71-1.85)
== END 2024-07-07 11:43 | disposition home or self-care (01) ==
LOC: HO.CHCLDS 11:42
PROVIDERS: Visit Provider Pediatrics
DX: M79.7 Fibromyalgia (principal); E04.1 Nontoxic single thyroid nodule
CPT/HCPCS: 36415; 80048; 80061; 82306; 84439; 84443